=== PATIENT | female | born 1955 | race African-American/Black ===

== ENCOUNTER 2016-09-14 12:07 | Emergency (ER) | payer SELFPAY ==
[2016-09-14 12:54] VITALS: BP 107/72
--- NOTE | 2016-09-14 13:23 | UC ---
UC General HPI - HPI Summary HPI Summary: complaint of dental pain in lower right jaw that started 1.5 days ago pain has increased chewing food and cold food makes the pain worse took some advil and tylenol without much relief tried oragel without relief denies fever and chills complaint of rash under her left breast for about 1 week itchy rash used bacitracin without any relief - History of Current Complaint Hx Obtained From: Patient <Conchis Florentino - Last Filed: 09/14/16 13:30> <Beronica Diego - Last Filed: 09/16/16 08:10> - History of Current Complaint Chief Complaint: UCDentalProblem Stated Complaint: TOOTH COMPLAINT Time Seen by Provider: 09/14/16 13:05 - Allergy/Home Medications Allergies/Adverse Reactions: Allergies Allergy/AdvReac Type Severity Reaction Status Date / Time No Known Allergies Allergy Verified 09/14/16 12:54 PMH/Surg Hx/FS Hx/Imm Hx Previously Healthy: Yes Endocrine History: Diabetes Cardiovascular History: Hypertension Other History Of: Negative For: Anticoagulant Therapy - Surgical History Surgical History: Yes Surgery Procedure, Year, and Place: 2002 LEFT ANKLE SURGERY, [facility] [place]. 1992 SURGERY ENDOMETRIOSIS, [facility] [place]. 2006 RIGHT HIP REPLACEMENT, [facility] [place]. 1975, 1976 X 2 , [facility]. R hip replacement - Family History Known Family History: Positive: None Negative: Cardiac Disease, Hypertension, Diabetes - Social History Occupation: Employed Full-time Lives: With Family Alcohol Use: None Substance Use Type: None Smoking Status (MU): Current Every Day Smoker Amount Used/How Often: 1/2 PPD Household Exposure Type: Cigarettes Cessation Counseling: Patient Advised to Stop - Immunization History Most Recent Tetanus Shot: WITH IN LAST 10 YEARS <Conchis Florentino - Last Filed: 09/14/16 13:30> Review of Systems Constitutional: Negative Skin: Rash Eyes: Negative ENT: Dental Pain Respiratory: Negative Cardiovascular: Negative Gastrointestinal: Negative Genitourinary: Negative Motor: Negative Neurovascular: Negative Musculoskeletal: Negative Neurological: Negative Psychological: Negative All Other Systems Reviewed And Are Negative: Yes <Conchis Florentino - Last Filed: 09/14/16 13:30> Physical Exam Triage Information Reviewed: Yes Appearance: No Pain Distress, Well-Nourished Vital Signs: Initial Vital Signs Temp 97.5 F 09/14/16 12:50 Pulse 88 09/14/16 12:50 Resp 18 09/14/16 12:50 BP 107/72 09/14/16 12:50 Pulse Ox 98 09/14/16 12:50 Vital Signs Reviewed: Yes Eyes: Positive: Conjunctiva Clear ENT: Positive: Pharynx normal, TMs normal Dental: Positive: Percussion Tenderness @ - behind 32- erythema and edema, Gross Decay/Caries @ - 32 Neck: Positive: No Lymphadenopathy Respiratory: Positive: Lungs clear, Normal breath sounds, No respiratory distress, No accessory muscle use Cardiovascular: Positive: RRR, No Murmur, Pulses Normal Abdomen Description: Positive: Nontender, Soft Bowel Sounds: Positive: Present Musculoskeletal: Positive: No Edema Psychological Exam: Normal Skin: Positive: rashes - under left breast- flat erythematous rash approx 5x3 cm <Conchis Florentino - Last Filed: 09/14/16 13:30> Vital Signs: Initial Vital Signs Temp 97.5 F 09/14/16 12:50 Pulse 88 09/14/16 12:50 Resp 18 09/14/16 12:50 BP 107/72 09/14/16 12:50 Pulse Ox 98 09/14/16 12:50 <Beronica Diego - Last Filed: 09/16/16 08:10> Course/Dx - Differential Dx - Multi-Symptom Differential Diagnoses: Other - tinea, cellulitis dental pain, dental abscess, Provider Diagnoses: tinea, dental pain <Conchis Florentino - Last Filed: 09/14/16 13:30> Discharge <Conchis Florentino - Last Filed: 09/14/16 13:30> <Beronica Diego - Last Filed: 09/16/16 08:10> - Discharge Plan Condition: Stable Disposition: HOME Prescriptions: Amoxicillin PO (*) [Amoxicillin 875 MG (*)] 875 mg PO BID #20 tab Clotrimazole/Betamethasone* [Lotrisone Cream*] 1 applic TOPICAL BID #1 tube oxyCODONE/Acetamin 5/325 MG* [Percocet 5/325 TAB*] 1 tab PO Q4H PRN #18 tab MDD 6 PRN Reason: Pain (Dental) Patient Education Materials: Toothache (ED), Tinea Corporis (ED) Referrals: Pamela Frausto MD [Medical Doctor] - Additional Instructions: Please start antibiotic as directed Increase fluids and rest Take percocet for pain for 3 days then take acetaminophen or ibuprofen for fever or pain apply cream BID to rash Please review your discharge instructions. If your symptoms do not improve please call your primary care provider or return to urgent care. Attestation Statement User Type: Provider Provider Attestation: I was available for consult. This patient was seen by the HE. The patient was not presented to, seen by, or examined by me. -Oscar <Beronica Diego - Last Filed: 09/16/16 08:10>
== END 2016-09-14 13:40 | disposition home or self-care (01) ==
LOC: UCEAST 12:07
DX: B35.9 Dermatophytosis, unspecified (principal); K08.89 Other specified disorders of teeth and supporting structures; E11.9 Type 2 diabetes mellitus without complications; I10 Essential (primary) hypertension; Z72.0 Tobacco use
CPT/HCPCS: 99212; G0463

== ENCOUNTER 2017-01-27 11:16 | Emergency (ER) | payer SELFPAY ==
[2017-01-27] MEDS ORDERED: Benzonatate CAP* 100 MG PO ONE (14:27)
--- NOTE | 2017-01-27 14:36 | ED ---
Upper Extremity Pain - HPI Summary HPI Summary: Patient presents to the ED with CC of left shoulder pain and cough x 2 weeks. She has been seen at her primary and given muscle relaxers without relief. She denies any known injury. She notes to pain with movement and better with rest. Denies overuse injury or job related. Denies fevers, sweats or chills. She does not feel the shoulder is relaxed although the muscle relaxers have not helped. She denies travel or smoking. The pain begins in the scapula and radiates down the left arm. Denies numbness/tingling/color or temperature changes. She has been otherwise healthy. Denies chest discomfort and pain is not worse with deep breaths. - History of Current Complaint Chief Complaint: EDGeneral Stated Complaint: COUGH,BACK PAIN 1 WEEK Time Seen by Provider: 01/27/17 12:29 Hx Obtained From: Patient Mechanism Of Injury: Unknown Onset/Duration: Started Weeks Ago Timing: Constant Severity Initially: Moderate Severity Currently: Moderate Pain Location: Shoulder Character: Aching Aggravating Factor(s): Flexion, Extension, Abduction, Adduction Alleviating Factor(s): Rest, Ice Associated Signs & Symptoms: Positive: Negative. Negative: Weakness, Numbness/ Tingling, Back Pain Related History: Dominant Hand Right - Risk Factors Non-Orthopedic Risk Factor: Negative DVT Risk Factors: Negative Septic Arthritis Risk Factor: Negative Compartment Syndrome Risk Factors: Pain - Allergies/Home Medications Allergies/Adverse Reactions: Allergies Allergy/AdvReac Type Severity Reaction Status Date / Time No Known Allergies Allergy Verified 09/14/16 12:54 PMH/Surg Hx/FS Hx/Imm Hx Previously Healthy: Yes Endocrine/Hematology History: Reports: Hx Diabetes, Hx Thyroid Disease Denies: Hx Anticoagulant Therapy Cardiovascular History: Reports: Hx Hypertension Denies: Hx Pacemaker/ICD Respiratory History: Reports: Other Respiratory Problems/Disorders - SMOKER 1/2 PPD Denies: Hx Asthma, Hx Chronic Obstructive Pulmonary Disease (COPD) GI History: Reports: Hx Gastroesophageal Reflux Disease - TAKING PROTONIX Denies: Hx Ulcer History: Denies: Hx Renal Disease Musculoskeletal History: Reports: Hx Arthritis - LEFT HIP, NECK, BILATERAL HANDS Sensory History: Reports: Hx Contacts or Glasses - CONTACTS, WILL WEAR GLASSES DAY OF SURGERY Denies: Hx Hearing Aid Opthamlomology History: Reports: Hx Contacts or Glasses - CONTACTS, WILL WEAR GLASSES DAY OF SURGERY Neurological History: Denies: Hx Dementia, Hx Seizures Psychiatric History: Denies: Hx Substance Abuse - Surgical History Surgery Procedure, Year, and Place: 2002 LEFT ANKLE SURGERY, [facility] [place]. 1992 SURGERY ENDOMETRIOSIS, [facility] [place]. 2006 RIGHT HIP REPLACEMENT, [facility] [place]. 1975, 1976 X 2 , [place]. R hip replacement Hx Anesthesia Reactions: Yes - VOMITING NEXT DAY - Immunization History Hx Pertussis Vaccination: No Immunizations Up to Date: Unable to Obtain/Confirm Infectious Disease History: No Infectious Disease History: Denies: Hx Clostridium Difficile, Hx Hepatitis, Hx Human Immunodeficiency Virus (HIV), Hx of Known/Suspected MRSA, Hx Shingles, Hx Tuberculosis, Hx Known/ Suspected VRE, Hx Known/Suspected VRSA, History Other Infectious Disease, Traveled Outside the [place] in Last 30 Days - Family History Known Family History: Positive: None Negative: Cardiac Disease, Hypertension, Diabetes - Social History Occupation: Unemployed Lives: With Family Alcohol Use: None Hx Substance Use: No Substance Use Type: Reports: None Hx Tobacco Use: Yes Smoking Status (MU): Current Every Day Smoker Amount Used/How Often: 1/2 PPD Review of Systems Constitutional: Negative Negative: Fever, Chills, Fatigue Eyes: Negative Cardiovascular: Negative Positive: Cough Gastrointestinal: Negative Genitourinary: Negative Positive: no symptoms reported, see HPI Positive: Arthralgia - left shoulder pain Skin: Negative All Other Systems Reviewed And Are Negative: Yes Physical Exam Triage Information Reviewed: Yes Vital Signs On Initial Exam: Initial Vitals Temp Pulse Resp BP Pulse Ox 97.5 F 114 20 112/82 96 01/27/17 11:39 01/27/17 11:39 01/27/17 11:39 01/27/17 11:39 01/27/17 11:39 Vital Signs Reviewed: Yes Appearance: Positive: Well-Appearing, Well-Nourished Skin: Positive: Warm, Skin Color Reflects Adequate Perfusion Head/Face: Positive: Normal Head/Face Inspection Eyes: Positive: Normal, CRISPIN, Conjunctiva Clear Neck: Positive: Supple, No Lymphadenopathy Respiratory/Lung Sounds: Positive: Clear to Auscultation, Breath Sounds Present Cardiovascular: Positive: RRR, Pulses are Symmetrical in both Upper and Lower Extremities Musculoskeletal: Positive: Pain @ - left shoulder - posterior Neurological: Positive: Sensory/Motor Intact, Alert, Oriented to Person Place, Time, Speech Normal Psychiatric: Positive: Normal AVPU Assessment: Alert - Manisha Coma Scale Coma Scale Total: 15 Diagnostics - Vital Signs Vital Signs Temp Pulse Resp BP Pulse Ox 01/27/17 11:39 97.5 F 114 20 112/82 96 - Laboratory Lab Statement: Any lab studies that have been ordered have been reviewed, and results considered in the medical decision making process. Course/Dx - Course Course Of Treatment: Patient is evaluated for left shoulder pain and cough. Left shoulder xray and chest show: chest xray WNL. Tessalon given in the ED. Prescription sent . d-dimer obtained d/t back/shoulder pain and slightly tachy at 120. d-dimer negative. Likely tendonitis. Patient made aware of results and ok with plan and discharge. - Diagnoses Provider Diagnoses: Tendonitis of shoulder Discharge - Discharge Plan Condition: Stable Disposition: HOME Prescriptions: Benzonatate CAP* [Tessalon CAP*] 100 mg PO TID #21 cap Patient Education Materials: Tendinitis (ED), Acute Cough (ED) Referrals: Marques Eid MD [Primary Care Provider] - Additional Instructions: Please take the tessalon as prescribed As discussed, I feel you may have tendonitis in the shoulder This pain will come and go and often radiate to the arm. For symptoms, muscle relaxers and Ibuprofen 600mg three times daily will help with symptoms Moist heat to the area is helpful
--- NOTE | 2017-01-27 15:07 | RAD ---
Indication: Left shoulder pain. 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 No fracture is identified. IMPRESSION: Degenerative changes of the left shoulder including the AC joint and glenohumeral joint..
--- NOTE | 2017-01-27 15:11 | RAD ---
INDICATION: Cough COMPARISON: May 04, 2015 TECHNIQUE: PA and lateral dual-energy views were obtained. FINDINGS: Bones/Soft Tissues: There are no acute bony findings. Cardiomediastinal: The cardiomediastinal silhouette is normal. Lungs: There are no infiltrates. Pleura: There are no pleural effusions. Other: None IMPRESSION: NO ACTIVE DISEASE.
[2017-01-27 15:59] VITALS: BP 135/86
== END 2017-01-27 16:09 | disposition home or self-care (01) ==
LOC: ED 11:16
DX: M25.512 Pain in left shoulder (principal); R05 Cough; M54.9 Dorsalgia, unspecified; M75.92 Shoulder lesion, unspecified, left shoulder
CPT/HCPCS: 36415; 71020; 85379; 99282; A9270-GY

== ENCOUNTER 2017-05-12 17:59 | Emergency (ER) | payer BC, OTHER ==
[2017-05-12] MEDS ORDERED: Ketorolac INJ* 30 MG/ML 1 ML VIAL IV ONE (18:22)
[2017-05-12 19:01] LABS: ABS Basophils 0.1 10^3/ul (0-0.2); ABS Eosinophils 0.2 10^3/ul (0-0.6); ABS Lymphocytes 2.2 10^3/ul (1.0-4.8); ABS Monocytes 0.4 10^3/ul (0-0.8); ABS Neutrophils 3.9 10^3/ul (1.5-7.7); ABS Nucleated RBC 0 10^3/ul; Hematocrit 42 % (35-47); Hemoglobin 14.3 g/dl (12.0-16.0); Lymphocyte % 32.7 % (25-47); Mean Corpuscular HGB Conc 34 g/dl (31-36); Mean Corpuscular Hemoglobin 33 pg (27-31); Mean Corpuscular Volume 97 fL (80-97); Mean Platelet Volume 7 um3 (7.4-10.4); Nucleated Red Blood Cells % 0.2; Platelet Count 253 10^3/ul (150-450); Red Blood Count 4.38 10^6/ul (4.0-5.4); Red Cell Distribution Width 13 % (10.5-15); White Blood Count 6.8 10^3/ul (3.5-10.8)
--- NOTE | 2017-05-12 19:13 | RAD ---
INDICATION: Chest pain. COMPARISON: Comparison is made with a prior study from January 27, 2017. TECHNIQUE: Dual-energy PA and lateral views of the chest were obtained. FINDINGS: The heart is within normal limits in size. Mediastinal and hilar contours appear within normal limits. The lungs are clear. No pleural effusion or pneumothorax is seen. IMPRESSION: NO EVIDENCE FOR ACTIVE CARDIOPULMONARY DISEASE.
[2017-05-12 19:18] LABS: EGFR Non-African American 73.5 (>60)
[2017-05-12 20:02] LABS: Urine Appearance Cloudy; Urine Blood Negative (Negative); Urine Color Yellow; Urine Ketones Negative (Negative); Urine Protein Negative (Negative); Urine Specific Gravity 1.012 (1.010-1.030); Urine Urobilinogen Negative (Negative)
[2017-05-12] MEDS ORDERED: NS 0.9% 1000 ML* 1,000 ML IV ONE (20:19)
[2017-05-12] MEDS ORDERED: oxyCODONE/Acetamin 5/325 MG* TAB PO ONE (20:47)
--- NOTE | 2017-05-12 21:10 | ED ---
Cristin Judge Julia, scribed for Constance Bailon MD on 05/12/17 at 1912 . Progress - Progress Note Progress Note: Patient is signed out from Dr. Ramos awaiting a CXR, lab results, and disposition. A CXR, as per radiologist, reveals: NO EVIDENCE FOR ACTIVE CARDIOPULMONARY DISEASE. ED Physician has reviewed this report. Previous EKG was also reviewed. Course/Dx - Course Course Of Treatment: This patient was signed out from Dr. Ramos. Patient reports pain at the back of her neck traveling into her left shoulder and arm, that is aggravated by movement. This is atypical chest pain presentation. A CXR is of no acute concern. EKG reveals mild tachycardia but is otherwise normal. Tropnin is 0. Lab results reveal a mild lactic acid elevationof 2.4; patient is advised to increase fluid intake to address this. Patient is instructed to have a stress test performed as soon as possible to rule out any cardiac issues. - Diagnoses Provider Diagnoses: Atypical chest pain The documentation as recorded by the Cristin wayne Julia accurately reflects the service I personally performed and the decisions made by , Constance Bailon MD.
[2017-05-12 21:14] VITALS: BP 139/94
--- NOTE | 2017-05-14 08:01 | ED ---
Félix Judge Angela, scribed for Christiano Ramos MD on 05/12/17 at 1825 . HPI Chest Pain - HPI Summary HPI Summary: This pt is a 61 y/o female presenting to [facility] [place] c/o left shoulder pain radiating down to the left sided chest intermittently for few weeks. Pt reports her pain has been more constant for the past 2 days. She describes a shooting pain that radiates from her left shoulder through her left shoulder blade and down to her left sided chest and left arm. Pt additionally notes left arm numbness. She rates her pain 10/10 in severity. Denies nausea, vomiting, SOB, lightheadedness. PMHx includes diabetes. Pt notes she had a cat scan of her chest 1 month ago, and states it was negative. - History of Current Complaint Chief Complaint: EDChestPainROMI Hx Obtained From: Patient Onset/Duration: Started Days Ago, Still Present Timing: Intermittent, Lasting Days Current Severity: Severe Pain Intensity: 10 Pain Scale Used: 0-10 Numeric Chest Pain Location: Left Anterior Chest Pain Radiates: Yes Chest Pain Radiates To:: Shoulder - left, Arm - left Character: Sharp/Stabbing - shooting sharp pain Aggravating Factor(s): Movement - of left arm Alleviating Factor(s): Rest Associated Signs and Symptoms: Positive: Chest Pain. Negative: Shortness of Breath, Fever, Lightheadedness, Nausea, Vomiting - Allergy/Home Medications Allergies/Adverse Reactions: Allergies Allergy/AdvReac Type Severity Reaction Status Date / Time No Known Allergies Allergy Verified 09/14/16 12:54 PMH/Surg Hx/FS Hx/Imm Hx Endocrine/Hematology History: Reports: Hx Diabetes, Hx Thyroid Disease Denies: Hx Anticoagulant Therapy Cardiovascular History: Reports: Hx Hypertension Denies: Hx Pacemaker/ICD Respiratory History: Reports: Other Respiratory Problems/Disorders - SMOKER 1/2 PPD Denies: Hx Asthma, Hx Chronic Obstructive Pulmonary Disease (COPD) GI History: Reports: Hx Gastroesophageal Reflux Disease - TAKING PROTONIX Denies: Hx Ulcer History: Denies: Hx Renal Disease Musculoskeletal History: Reports: Hx Arthritis - LEFT HIP, NECK, BILATERAL HANDS Sensory History: Reports: Hx Contacts or Glasses - CONTACTS, WILL WEAR GLASSES DAY OF SURGERY Denies: Hx Hearing Aid Opthamlomology History: Reports: Hx Contacts or Glasses - CONTACTS, WILL WEAR GLASSES DAY OF SURGERY Neurological History: Denies: Hx Dementia, Hx Seizures Psychiatric History: Denies: Hx Substance Abuse - Surgical History Surgery Procedure, Year, and Place: 2002 LEFT ANKLE SURGERY, [facility] [place]. 1992 SURGERY ENDOMETRIOSIS, [facility] [place]. 2006 RIGHT HIP REPLACEMENT, [facility] [place]. 1975, 1976 X 2 , [facility]. R hip replacement Hx Anesthesia Reactions: Yes - VOMITING NEXT DAY Infectious Disease History: No Infectious Disease History: Denies: Hx Clostridium Difficile, Hx Hepatitis, Hx Human Immunodeficiency Virus (HIV), Hx of Known/Suspected MRSA, Hx Shingles, Hx Tuberculosis, Hx Known/ Suspected VRE, Hx Known/Suspected VRSA, History Other Infectious Disease, Traveled Outside the [place] in Last 30 Days - Family History Known Family History: Negative: Cardiac Disease, Hypertension, Diabetes - Social History Alcohol Use: None Hx Substance Use: No Substance Use Type: Reports: None Hx Tobacco Use: Yes Smoking Status (MU): Current Every Day Smoker Amount Used/How Often: 1/2 PPD Review of Systems Negative: Fever, Chills Positive: Chest Pain Negative: Shortness Of Breath Negative: Vomiting, Nausea Musculoskeletal: Other - left shoulder pain, left shoulder blade pain, left arm pain Neurological: Other - NEG: lightheadedness Positive: Numbness - left arm All Other Systems Reviewed And Are Negative: Yes Physical Exam - Summary Physical Exam Summary: VITAL SIGNS: Reviewed. GENERAL: Patient is a well-developed and nourished female who is lying comfortable in the stretcher. Patient is not in any acute respiratory distress. HEAD AND FACE: No signs of trauma. No ecchymosis, hematomas or skull depressions. No sinus tenderness. EYES: PERRLA, EOMI x 2, No injected conjunctiva, no nystagmus. EARS: Hearing grossly intact. Ear canals and tympanic membranes are within normal limits. MOUTH: Oropharynx within normal limits. NECK: Supple, trachea is midline, no adenopathy, no JVD, no carotid bruit, no c- spine tenderness, neck with full ROM. CHEST: Symmetric, no tenderness at palpation LUNGS: Clear to auscultation bilaterally. No wheezing or crackles. CVS: Regular rate and rhythm, S1 and S2 present, no murmurs or gallops appreciated. ABDOMEN: Soft, non-tender. No signs of distention. No rebound no guarding, and no masses palpated. Bowel sounds are normal. EXTREMITIES: no edema, no cyanosis or clubbing. LUE: slightly decreased ROM of left shoulder, trapezius and upper back. NEURO: Alert and oriented x 3. No acute neurological deficits. Speech is normal and follows commands. SKIN: Dry and warm Triage Information Reviewed: Yes Vital Signs On Initial Exam: Initial Vitals Temp Pulse Resp BP Pulse Ox 98.2 F 115 18 118/90 96 05/12/17 18:01 05/12/17 18:01 05/12/17 18:01 05/12/17 18:01 05/12/17 18:01 Vital Signs Reviewed: Yes Diagnostics - Vital Signs Vital Signs Temp Pulse Resp BP Pulse Ox 05/12/17 18:01 98.2 F 115 18 118/90 96 - Laboratory Result Diagrams: 05/12/17 18:53 05/12/17 18:53 Lab Statement: Any lab studies that have been ordered have been reviewed, and results considered in the medical decision making process. - Radiology Chest XR Radiology Interpretation Completed By: Radiologist - pending official radiology report, please see [employer]. Left shoulder XR Radiology Interpretation Completed By: Radiologist - pending official radiology report, please see [employer]. - EKG 18:15 Cardiac Rate: Tachycardia EKG Rhythm: Sinus Tachycardia - at 104 bpm EKG Interpretation: No ST elevations. Chest Pain Course/Dx - Course Assessment/Plan: This pt is a 61 y/o female presenting to [facility] c/o left shoulder pain radiating down to the left sided chest intermittently for few weeks. Pt reports her pain has been more constant for the past 2 days. She describes a shooting pain that radiates from her left shoulder through her left shoulder blade and down to her left sided chest and left arm. Pt additionally notes left arm numbness. She rates her pain 10/10 in severity. Denies nausea, vomiting, SOB, lightheadedness. PMHx includes diabetes. Pt notes she had a cat scan of her chest 1 month ago, and states it was negative. EKG shows sinus tachycardia with no ST elevation. Pt is awaiting chest XR and left shoulder XR, as well as bloodwork. In the ED course the pt was given Toradol for the pain. The pt will be signed out to Dr. Bailon, pending disposition, awaiting blood work and chest XR. Pt is hemodynamically stable, alert and oriented x3. - Diagnoses Provider Diagnoses: Chest pain, Left shoulder pain Discharge - Discharge Plan Condition: Stable Disposition: OTHER Discharge Disposition Comment: signed out to Dr. Bailon, pending dispo, awaiting CXR, L shoulder XR, labs. Prescriptions: oxyCODONE/Acetamin 5/325 MG* [Percocet 5/325 TAB*] 1 tab PO Q6H PRN #14 tab MDD 4 PRN Reason: Pain Patient Education Materials: Chest Pain (ED) Referrals: Jose Newby MD [Primary Care Provider] - As Soon As Possible (Follow up with your primary care physician or a control board operator.) Additional Instructions: I recommend that you schedule a stress test as an outpatient as soon as possible. RETURN TO THE EMERGENCY DEPARTMENT FOR CHANGING OR WORSENING SYMPTOMS. The documentation as recorded by the Félix wayne Angela accurately reflects the service I personally performed and the decisions made by me, Christiano Ramos MD.
== END 2017-05-12 21:27 ==
LOC: ED 17:59
DX: M25.512 Pain in left shoulder (principal); R07.89 Other chest pain; F17.200 Nicotine dependence, unspecified, uncomplicated
CPT/HCPCS: 36415; 71046; 80053; 81003; 82550; 83605; 83735; 83880; 84443; 84484; 85025; 93005; 96374; 99283; A9270-GY; J1885